=== PATIENT | female | born 1980 | race Caucasian/White ===

== ENCOUNTER 2017-11-24 17:04 | Emergency (ER) | payer OTHER ==
[~2017-11-24] VITALS: Ht 160 cm; Wt 72.6 kg
[2017-11-24] MEDS ORDERED: ADDERALL 20 MG20 MG PO (17:15)
[2017-11-24] MEDS ORDERED: BRINTELLIX10 MG PO (17:15)
[2017-11-24] MEDS ORDERED: AUGMENTIN 875-1 EACH PO (18:15)
[2017-11-24] MEDS ORDERED: ACETAMINOPHEN-1 EAC1 PO (18:16)
[2017-11-24 18:31] VITALS: BP 131/98
== END 2017-11-24 18:32 | disposition home or self-care (01) ==
LOC: M.ERS 17:04
DX: S51.852A Open bite of left forearm, initial encounter (principal); F90.9 Attention-deficit hyperactivity disorder, unspecified type; F17.200 Nicotine dependence, unspecified, uncomplicated; W54.0XXA Bitten by dog, initial encounter; Y93.89 Activity, other specified; Y92.89 Other specified places as the place of occurrence of the external cause; Y99.8 Other external cause status

== ENCOUNTER 2019-04-01 18:09 | Emergency (ER) | payer OTHER ==
[~2019-04-01] VITALS: Ht 160 cm; Wt 72.6 kg
[~2019-04-01 18:09] MED LIST: ACETAMINOPHEN-1 EAC1 PO; ADDERALL 30 MG30 MG PO; AUGMENTIN 875-1 EACH PO; BRINTELLIX10 MG PO
[2019-04-01 18:10] VITALS: BP 155/90
[2019-04-01] MEDS ORDERED: VIIBRYD40 MG PO (18:19)
[2019-04-01] MEDS ORDERED: NORCO 5-325 TA1 EAC1 PO (18:19)
[2019-04-01] MEDS ORDERED: ERYTHROMYCIN E3.5 G3 OPHTHALMIC (18:19)
== END 2019-04-01 18:25 | disposition home or self-care (01) ==
LOC: M.ERS 18:09
DX: S05.01XA Injury of conjunctiva and corneal abrasion without foreign body, right eye, initial encounter (principal); H11.31 Conjunctival hemorrhage, right eye; F90.9 Attention-deficit hyperactivity disorder, unspecified type; F32.9 Major depressive disorder, single episode, unspecified; X58.XXXA Exposure to other specified factors, initial encounter; Y93.89 Activity, other specified; Y92.89 Other specified places as the place of occurrence of the external cause; Y99.8 Other external cause status

== ENCOUNTER 2020-03-15 14:49 | Emergency (ER) | payer OTHER ==
[~2020-03-15] VITALS: Ht 160 cm; Wt 86.2 kg
[~2020-03-15 14:49] MED LIST changes: +ERYTHROMYCIN E3.5 G3 OPHTHALMIC; +NORCO 5-325 TA1 EAC1 PO; +VIIBRYD40 MG PO
[2020-03-15 15:00] VITALS: BP 146/106
== END 2020-03-15 16:54 | disposition home or self-care (01) ==
LOC: M.ERS 14:49
DX: S01.81XA Laceration without foreign body of other part of head, initial encounter (principal); W22.8XXA Striking against or struck by other objects, initial encounter; Y93.89 Activity, other specified; Y92.89 Other specified places as the place of occurrence of the external cause; Y99.8 Other external cause status